=== PATIENT | male | born 1980 | race American Indian/Alaskan Native ===

== ENCOUNTER 2018-06-02 10:34 | Emergency (ER) | payer OTHER ==
[2018-06-02 10:40] VITALS: BMI 24.2
[2018-06-02 10:41] VITALS: RESP 17; O2SAT 99
--- NOTE | 2018-06-02 11:24 | ED PDOC ---
HPI: Chest Pain Time Seen by Provider: 06/02/18 10:49 Chief Complaint (Nursing): Chest Pain Chief Complaint (Provider): Chest pain History Per: Patient Additional Complaint(s): Patient is a 35 year old male presenting to the ED complaining of non radiating left sided chest pain x 3 days. Pt also noted nuasea and vomited x 1 while in ED room. patient denies fever, chills, diarrhea, constipation, shortness of breath, dysuria, or abdominal pain. Urinating with no issues. No numbness, tingles. Of Note: Patient has a history of kidney transplant. PMD: [facility] Past Medical History Vital Signs: Last Vital Signs Temp 98.6 F 06/02/18 10:40 Pulse 61 06/02/18 10:40 Resp 17 06/02/18 10:40 BP 122/81 06/02/18 10:40 Pulse Ox 99 06/02/18 14:45 - Medical History PMH: HTN, End Stage Renal Disease, Chronic Kidney Disease - Family History Family History: States: Unknown Family Hx - Home Medications Home Medications: Ambulatory Orders Medication Instructions Recorded Amoxicillin/Potassium Clav 1 each PO Q12 #9 tablet 01/20/16 [Augmentin 875-125 Tablet] Ibuprofen 600 mg PO Q6 PRN #15 tablet 01/20/16 Albuterol Sulfate [Proair Hfa] 1 - 2 puff INH PRN PRN 10 Days inh 10/17/16 Oseltamivir Phosphate [Tamiflu] 75 mg PO BID 5 Days capsule 10/17/16 predniSONE [predniSONE Tab] 20 mg PO BID 5 Days tab 10/17/16 - Allergies Allergies/Adverse Reactions: Allergies Allergy/AdvReac Type Severity Reaction Status Date / Time No Known Allergies Allergy Verified 01/27/16 14:01 FREDDY Risk Score for UA/NSTEMI - FREDDY Risk Score Age > 64: NO 3 or more CAD Risk Factors: NO Known CAD (Stenosis greater than 50%): NO Aspirin use in past 7 days: NO Severe Angina: NO EKG ST changes greater than 0.5mm: NO Positive Cardiac Marker: NO FREDDY Score: 0 Risk %: 5% Curb-65 Severity Score - CURB-65 Severity Score Confusion: No Bun >19mg/dl (>7mmol/L): No Respiratory Rate greater than/equal to 30: No Systolic BP <90 or Diastolic BP less than/equal 60mmHg: No Age >64: No Curb-65 Score: 0 Percentage 30-day mortality: 0.6% Wells Criteria for PE - Wells Criteria for Pulmonary Embolism Clinical Signs and Symptoms of DVT: No P.E is #1 Diagnosis, or Equally Likely: No Heart Rate >100: No Immobilization at least 3 days;Surgery previous 4 weeks: No Previous, objectively diagnosed PE or DVT: No Hemoptysis: No Malignancy w/treatment within 6 months, or palliative: No Total Score: 0 Review of Systems ROS Statement: Except As Marked, All Systems Reviewed And Found Negative Cardiovascular: Positive for: Chest Pain Physical Exam - Reviewed Nursing Documentation Reviewed: Yes Vital Signs Reviewed: Yes - Physical Exam Appears: Positive for: Well, Non-toxic, No Acute Distress Head Exam: Positive for: ATRAUMATIC, NORMAL INSPECTION, NORMOCEPHALIC Skin: Positive for: Normal Color, Warm, DRY Eye Exam: Positive for: EOMI, Normal appearance, PERRL ENT: Positive for: Normal ENT Inspection Neck: Positive for: Normal, Painless ROM Cardiovascular/Chest: Positive for: Regular Rate, Rhythm Respiratory: Positive for: CNT, Normal Breath Sounds Gastrointestinal/Abdominal: Positive for: Normal Exam, Soft Back: Positive for: Normal Inspection Extremity: Positive for: Normal ROM Neurologic/Psych: Positive for: Alert, Oriented - Laboratory Results Result Diagrams: 06/02/18 12:22 06/02/18 12:22 - ECG O2 Sat by Pulse Oximetry: 99 Medical Decision Making Medical Decision Making: IV access established and diagnostics ordered EKG interpreted and cleared by ED MD Vitals stable on bacteriologist medical labs resulted and reviewed with pt who demonstrated full understanding CXR: NAd, as read by NICOLE On re-eval< pt reports feeling well. no chest pain or SOB. vitals stable on bacteriologist medical. Pt asking for food tray Pt offered observation for repeat troponin; however, declined. Disposition - Clinical Impression Clinical Impression: Chest pain - Patient ED Disposition Is Patient to be Admitted: No - Disposition Disposition: Routine/Home Disposition Time: 14:48 Condition: STABLE Instructions: Chest Pain That Is Not Caused by the Heart (DC) Forms: [employer] ([place])
--- NOTE | 2018-06-02 11:55 | RAD ---
Date of service: 06/02/2018 HISTORY: chest pain COMPARISON: 10/17/2016 TECHNIQUE: Chest PA and lateral FINDINGS: LUNGS: No focal alveolar infiltrate. Mild nonspecific interstitial changes bilaterally without interval change from prior study. There is interval improvement in aeration at the left costophrenic angle from the prior study. PLEURA: No significant pleural effusion identified. No pneumothorax apparent. CARDIOVASCULAR: Normal. OSSEOUS STRUCTURES: No significant abnormalities. VISUALIZED UPPER ABDOMEN: Normal. OTHER FINDINGS: None. IMPRESSION: No focal infiltrate.
[2018-06-02 12:30] LABS: BASO % 0.6 % (0.0-2.0); EOS # 0.1 K/uL (0.0-0.7); EOS % 1.6 % (0.0-4.0); HEMOGLOBIN 16.3 g/dL (12.0-18.0); LYMPH # 1.1 K/uL (1.0-4.3); LYMPH % 15.3 % (20.0-40.0); MEAN CELL VOLUME 85.8 fl (80.0-94.0); MEAN CORPUSCULAR HEMOGLOBIN 28.3 pg (27.0-31.0); MEAN CORPUSCULAR HGB CONC 32.9 g/dL (33.0-37.0); MEAN PLATELET VOLUME 10.6 fl (7.2-11.7); MONO # 0.9 K/uL (0.0-0.8); MONO % 12.9 % (0.0-10.0); NEUT % 69.6 % (50.0-75.0); NRBC % 0.2 % (0.0-0.0); RBC 5.77 Mil/uL (4.40-5.90); RED CELL DISTRIBUTION WIDTH 14.9 % (11.5-14.5); WHITE BLOOD COUNT 7.1 K/uL (4.8-10.8)
[2018-06-02 12:50] LABS: ALBUMIN 3.8 g/dL (3.5-5.0); ALT/SGPT 28 U/L (21-72); AST/SGOT 20 U/L (17-59); BLOOD UREA NITROGEN 14 mg/dl (9-20); CALCIUM 9.4 mg/dL (8.4-10.2); GFR NON-AFRICAN AMERICAN > 60
[2018-06-02 14:38] LABS: BARBITURATES, UR NEGATIVE (NEGATIVE); BENZODIAZEPINES, UR NEGATIVE (NEGATIVE); OPIATES, UR NEGATIVE (NEGATIVE); PHENCYCLIDINE, UR NEGATIVE (NEGATIVE)
[2018-06-02 14:39] LABS: URINE BILIRUBIN NEGATIVE (NEGATIVE); URINE BLOOD NEGATIVE (NEGATIVE); URINE CLARITY CLEAR (Clear); URINE COLOR YELLOW (YELLOW); URINE GLUCOSE (UA) NEG (Normal); URINE LEUKOCYTE ESTERASE NEG Leu/uL (Negative); URINE PROTEIN NEGATIVE (NEGATIVE)
[2018-06-02 14:59] LABS: SQUAMOUS EPITHIAL 1 /hpf (0-5)
[2018-06-02 15:26] VITALS: BP 127/74; PULSE 72; TEMP 98
--- NOTE | 2018-06-03 06:42 | CARD ---
APPROVED REPORT Date of service: 06/02/2018 EKG Measurement Heart [id number] <Conclusion> Sinus bradycardia Possible Left atrial enlargement Borderline ECG
== END 2018-06-02 15:24 | disposition home or self-care (01) ==
LOC: H.ER 10:34
DX: R07.89 Other chest pain (principal); I12.0 Hypertensive chronic kidney disease with stage 5 chronic kidney disease or end stage renal disease; Z94.0 Kidney transplant status